=== PATIENT | male | born 1995 | race Caucasian/White ===

== ENCOUNTER 2019-04-09 19:35 | Emergency (ER) | payer MEDICAID ==
[~2019-04-09] VITALS: Ht 160 cm; Wt 48.5 kg
[2019-04-09 20:50] LABS: Basophils # (auto) 0.1 uL; Eosinophils # (auto) 0.1 uL; Lymphocytes # (auto) 2.8 uL; Nucleated Red Blood Cells % 0.1 %
[2019-04-09 20:51] LABS: Basophils % (auto) 0.6 % (0.0-2.0); Eosinophils % (auto) 0.9 % (0.0-7.0); Hematocrit 51.4 % (41.0-53.0); Hemoglobin 17.7 g/dL (13.5-17.5); Lymphocytes % (auto) 26.6 % (10.0-50.0); Mean Corpuscular Hemoglobin 31.3 pg (28.0-32.0); Mean Corpuscular Hgb Conc. 34.5 g/dL (32.0-36.0); Mean Corpuscular Volume 90.7 fL (80.0-100.0); Monocytes # (auto) 0.7 uL; Monocytes % (auto) 6.6 % (0.0-12.0); Neutrophils % (auto) 65.3 % (37.0-80.0); Platelet Count (auto) 301 10^3/uL (140-450); Red Blood Cells 5.66 10^6/uL (4.5-5.90); White Blood Cell 10.7 10^3/uL (4.4-10.8)
[2019-04-09 20:57] LABS: Albumin 4.5 g/dL (3.4-5.0); BUN/Creatinine Ratio 15.3; Calcium 9.4 mg/dL (8.5-10.1); Potassium 3.5 mmol/L (3.5-5.1)
[2019-04-09 20:58] LABS: Salicylate < 1.7 mg/dL (2.8-20.0)
[2019-04-09 21:00] LABS: Acetaminophen < 2.0 ug/mL (10-30); Bilirubin, Total 0.8 mg/dL (0.2-1.0); Total Protein 8.3 g/dL (6.4-8.2)
[2019-04-09] MEDS ORDERED: IOHEXOL 300 MG/ML 100ML BOTTLE IJ ONE (23:25)
[2019-04-09 23:28] LABS: Urine Bacteria NONE SEEN /hpf (None Seen); Urine Blood Negative /uL (Negative); Urine Mucus FEW (None Seen); Urine Specific Gravity 1.027 (1.001-1.035); Urine WBC 1 /hpf (0 - 3)
[2019-04-09 23:38] LABS: Alcohol, Urine < 3.0 mg/dL (0-5); Amphetamine Screen, Urine NEGATIVE (NEGATIVE); Barbiturate Scree,Urine NEGATIVE (NEGATIVE); Benzodiazephine Screen, Urine NEGATIVE (NEGATIVE); Cannabinoid Screen, Urine NEGATIVE (NEGATIVE); Cocaine Screen, Urine NEGATIVE (NEGATIVE); Opiate Scree,Urine NEGATIVE (NEGATIVE); Phencyclidine Screen, Urine NEGATIVE (NEGATIVE)
[2019-04-10] MEDS ORDERED: QUEtiapine FUMARATE 25 MG TAB PO ONE (05:15)
[2019-04-10 05:26] VITALS: BP 132/87
== END 2019-04-10 05:50 | disposition home or self-care (01) ==
LOC: ER 19:41
DX: D35.01 Benign neoplasm of right adrenal gland (principal); R44.3 Hallucinations, unspecified; F31.9 Bipolar disorder, unspecified; R93.0 Abnormal findings on diagnostic imaging of skull and head, not elsewhere classified
CPT/HCPCS: 36415; 70450; 74177; 80053; 80307; 80329; 81001; 82550; 85025; 99284; Q9967

== ENCOUNTER 2019-09-18 07:55 | Emergency (ER) | payer MEDICAID ==
[~2019-09-18] VITALS: Ht 167.6 cm; Wt 63.5 kg
[2019-09-18] MEDS ORDERED: HYDR-4604 (08:17)
[2019-09-18] MEDS ORDERED: SODIUM CHLORIDE 0.9% 1,000 ML IV ONE (08:17)
[2019-09-18] MEDS ORDERED: FLU01T (08:17)
[2019-09-18] MEDS ORDERED: RISP2TAB62 (08:17)
[2019-09-18] MEDS ORDERED: LORazepam 2MG/ML-1ML VIAL IV ONE (08:30)
[2019-09-18 08:35] LABS: Eosinophils # (auto) 0.1 10 ^3/uL (0-0.8); Eosinophils % (auto) 0.9 % (0.0-7.0); Lymphocytes # (auto) 1.8 10 ^3/uL (0.4-5.4); Lymphocytes % (auto) 18.8 % (10.0-50.0); Mean Corpuscular Hemoglobin 32.3 pg (28.0-32.0); Monocytes # (auto) 0.7 10 ^3/uL (0-1.3)
[2019-09-18 08:36] LABS: Basophils # (auto) 0.1 10 ^3/uL (0-0.2); Basophils % (auto) 0.6 % (0.0-2.0); Hematocrit 50.8 % (41.0-53.0); Hemoglobin 17.8 g/dL (13.5-17.5); Mean Corpuscular Hgb Conc. 35.1 g/dL (32.0-36.0); Monocytes % (auto) 7.7 % (0.0-12.0); Neutrophils # (auto) 6.7 10 ^3/uL (1.6-8.6); Nucleated Red Blood Cells % 0.1 %; Platelet Count (auto) 225 10^3/uL (140-450); Red Blood Cells 5.52 10^6/uL (4.5-5.90); Red Cell Distribution Width 12.9 % (11.8-14.3); White Blood Cell 9.3 10^3/uL (4.4-10.8)
[2019-09-18 08:54] LABS: Albumin 4.6 g/dL (3.4-5.0); Calcium 9.4 mg/dL (8.5-10.1); Magnesium 2.5 mg/dL (1.6-2.6); Potassium 3.8 mmol/L (3.5-5.1)
[2019-09-18 08:56] LABS: BUN/Creatinine Ratio 16.8; Bilirubin, Total 1.3 mg/dL (0.2-1.0); Total Protein 8.6 g/dL (6.4-8.2)
[2019-09-18 15:00] VITALS: BP 139/80
[2019-09-18 16:13] LABS: Urine Bacteria NONE SEEN /hpf (None Seen); Urine Blood Negative /uL (Negative); Urine Mucus FEW (None Seen); Urine Specific Gravity 1.027 (1.001-1.035); Urine WBC 1 /hpf (0 - 3)
[2019-09-18 16:24] LABS: Alcohol, Urine < 3.0 mg/dL (0-5); Amphetamine Screen, Urine NEGATIVE (NEGATIVE); Barbiturate Scree,Urine NEGATIVE (NEGATIVE); Benzodiazephine Screen, Urine NEGATIVE (NEGATIVE); Cannabinoid Screen, Urine NEGATIVE (NEGATIVE); Cocaine Screen, Urine NEGATIVE (NEGATIVE); Opiate Scree,Urine NEGATIVE (NEGATIVE); Phencyclidine Screen, Urine NEGATIVE (NEGATIVE)
[2019-09-19] MEDS ORDERED: HYDR-4604 PO (14:24)
== END 2019-09-18 18:00 | disposition left against medical advice (07) ==
LOC: ER 07:55 → EDBD 07:55 → ER 18:00
DX: R41.82 Altered mental status, unspecified (principal); F15.959 Other stimulant use, unspecified with stimulant-induced psychotic disorder, unspecified; F20.9 Schizophrenia, unspecified; Z79.899 Other long term (current) drug therapy
CPT/HCPCS: 36415; 71046; 80053; 80307; 81001; 82962; 83735; 84443; 85025; 85379; 93005; 96361; 96374; 99285; J2060; J7030

== ENCOUNTER 2019-09-18 18:58 | Emergency (ER) | payer MEDICAID ==
[~2019-09-18] VITALS: Ht 167.6 cm; Wt 68.0 kg
[~2019-09-18 18:58] MED LIST: FLU01T; HYDR-4604; RISP2TAB62
[2019-09-19] MEDS ORDERED: HYDR-4604 PO (14:24)
[2019-09-19] MEDS ORDERED: HYDROCORTISONE 10 MG TAB PO SCH ×2 (14:44→22:00)
[2019-09-19] MEDS ORDERED: FLUDROCORTISONE ACETATE 0.1 MG TAB PO SCH (14:45)
[2019-09-19] MEDS ORDERED: diphenhdrAMINE HCL 50 MG/1 ML VL ONE (21:20)
[2019-09-19] MEDS ORDERED: HALOPERIDOL LACTATE 5 MG/ML INJ VIAL ONE (21:20)
[2019-09-19] MEDS ORDERED: LORazepam 2MG/ML-1ML VIAL ONE (21:21)
[2019-09-19] MEDS ORDERED: diphenhdrAMINE HCL 50 MG/1 ML VL IM ONE (21:30)
[2019-09-19] MEDS ORDERED: LORazepam 2MG/ML-1ML VIAL IM ONE (21:30)
[2019-09-19] MEDS ORDERED: HALOPERIDOL LACTATE 5 MG/ML INJ VIAL IM ONE (21:30)
[2019-09-20 07:00] VITALS: BP 109/75
== END 2019-09-20 06:50 ==
LOC: EDUNIT# 18:58 → EDBD 18:58 → ER 19:01
DX: F23 Brief psychotic disorder (principal); F41.9 Anxiety disorder, unspecified; F32.9 Major depressive disorder, single episode, unspecified
CPT/HCPCS: 82024; 82533; 99285; J1200; J1630; J2060; 96372

== ENCOUNTER 2023-02-17 12:07 | Emergency (ER) | payer MEDICAID ==
[~2023-02-17] VITALS: Ht 162.6 cm; Wt 60.1 kg
[~2023-02-17 12:07] MED LIST changes: +HYDR-4604 PO
[2023-02-17 17:18] VITALS: BP 108/69; PULSE 102; RESP 18; TEMP 98.6; O2SAT 97
== END 2023-02-17 17:33 | disposition home or self-care (01) ==
LOC: ER 12:07
DX: Z00.00 Encounter for general adult medical examination without abnormal findings (principal); F41.9 Anxiety disorder, unspecified; F32.9 Major depressive disorder, single episode, unspecified; F20.9 Schizophrenia, unspecified